=== PATIENT | male | born 1985 | race Asian ===

== ENCOUNTER 2023-03-09 04:03 | Emergency (ER) | payer OTHER, SELFPAY ==
--- NOTE | ~2023-03-09 | XR_ITS ---
Left Forearm AP and lateral views of the left forearm were performed. Clinical History: Laceration Findings: No fracture or dislocation is seen. Osseous alignment in anatomic. Joint spaces are prese rved. Soft tissues are unremarkable. Impression: Unremarkable exam. Reviewed, dictated and finalized at location M. Impression: Unremarkable exam.
[2023-03-09 04:08] VITALS: BP 156/100; PULSE 87; RESP 19; TEMP 36.4; O2SAT 100
--- NOTE | 2023-03-09 04:14 | ED.WOUNDLAC ---
HPI - Wound/Laceration General Chief Complaint: Wound/Laceration Stated Complaint: Left arm injury at work Time Seen by Provider: 03/09/23 04:08 History of Present Illness HPI narrative: History obtained with professional translation services ([employer]). This is a 38-year-old male, with no significant past medical history, who presents to the emergency department with a wound to the left forearm. 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 He complains of moderate, sharp pain. He denies head injury or loss of consciousness. Related Data Allergies Allergy/AdvReac Type Severity Reaction Status Date / Time No Known Allergies Allergy Verified 03/09/23 04:05 Review of Systems Review of Systems: CONSTITUTIONAL: Denies fever, chills, or sweats. CARDIOVASCULAR: Denies chest pain, palpitations, or edema. GASTROINTESTINAL: Denies abdominal pain, nausea, vomiting, or diarrhea. GENITOURINARY: Denies dysuria or hematuria. SKIN: Laceration of the left arm denies rash or itching. MUSCULOSKELETAL: Laceration of the left arm denies back pain, joint pain, or myalgia. PMFSH Past Medical History Medical History No significant past medical history Social History Social History (Updated 03/09/23 @ 04:16 by Julio Phipps MD) Smoking status: Never smoker Alcohol intake: never Substance use: never Exam Narrative: GENERAL: Well-developed, well-nourished, and in no acute distress. HEAD: Normocephalic, atraumatic. EYES: PERRLA and EOMI. CHEST: Clear to auscultation. No respiratory distress. No wheezes rales or rhonchi HEART: Regular rate and rhythm. No murmur heard. Normal peripheral pulses. ABDOMEN: Soft, nontender, nondistended, normal active bowel sounds. EXTREMITIES: 1 cm puncture wound is seen on the ventral aspect of the left forearm approximately 10 cm distal to the elbow. There are two 1 mm puncture wounds just lateral to the previously described wound. Otherwise normal range of motion. No edema. SKIN: Warm, dry, no rash. NEURO: No focal deficits. Alert and oriented x3. Strength 5/5, sensation intact PSYCH: Normal mood and affect. Course Course Emergency Course: :15 - X-ray by my interpretation not concerning for fracture or retained foreign object. The patient's wound was anesthetized with 1% lidocaine, explored and irrigated. Please see procedure note for laceration repair. Will discharge with recommendations for wound care and return for suture removal. Discussed return and emergency precautions including signs/symptoms of wound infection and neurovascular compromise. Patient voiced understanding and is comfortable with the plan. All questions answered to his satisfaction. Vital Signs Vital signs: Vital Signs Temperature 97.5 F L 03/09/23 04:08 Pulse Rate 87 03/09/23 04:08 Respiratory Rate 19 03/09/23 04:08 Blood Pressure 156/100 H 03/09/23 04:08 Pulse Oximetry 100 03/09/23 04:08 Oxygen Delivery Room Air 03/09/23 04:08 Temperature 97.5 F L 03/09/23 04:08 Pulse Rate 87 03/09/23 04:08 Respiratory Rate 19 03/09/23 04:08 Blood Pressure 156/100 H 03/09/23 04:08 Pulse Oximetry 100 03/09/23 04:08 Oxygen Delivery Room Air 03/09/23 04:08 Procedures Laceration Laceration 1: Date: 03/09/23 Time: 05:00 Site: upper extremity Side (If applicable): left Size (cm): 1 Description: irregular Depth: simple, single layer Local Anesthetic: lidocaine 1% Amount of anesthesia used (mL): 8 Pre-repair: wound explored, irrigated and irrigated extensively ====== Skin Level ====== Skin layer closed with: nylon and dermabond Size (cm): 4-0 Number of sutures: 3 Technique: simple, interrupted ====== Subcutaneous Layer ====== Subcutaneous layer closed with: vicryl Si
[2023-03-09] MEDS: oxyCODONE/ACETAMINOPHEN (*CRX) 5-325 MG TABLET 1 TABLET PO (04:30)
[2023-03-09] MEDS: TETANUS,DIPHTHERIA,AC PERTUSSIS ADULT (0.5 ML) BOOSTRIX IM (04:31)
== END 2023-03-09 05:32 | disposition home or self-care (01) ==
PROVIDERS: Emergency Provider Preventive Medicine Aerospace Medicine
DX: S51.812A Laceration without foreign body of left forearm, initial encounter (principal); W20.8XXA Other cause of strike by thrown, projected or falling object, initial encounter; Z23 Encounter for immunization
CPT/HCPCS: 12032; 73090; 90471; 90715; 99283; A9270

== ENCOUNTER 2023-03-27 08:15 | Emergency (ER) | payer OTHER, SELFPAY ==
[2023-03-27 08:29] VITALS: BP 147/99; PULSE 80; RESP 16; TEMP 37.2; O2SAT 99
--- NOTE | 2023-03-27 08:29 | ED.UPPEXIN ---
HPI - Extremity Injury (Upper) General Chief Complaint: Extremity Injury, Upper Stated Complaint: Left Arm Pain Time Seen by Provider: 03/27/23 08:53 Source: patient and RN notes reviewed Mode of arrival: ambulatory Limitations: no limitations History of Present Illness HPI narrative: 38-year-old male presents with concern of for left forearm pain that radiates up to the shoulder and down to the wrist. He reports on March 09 he injured himself at work with a crush and puncture wound. He reports he was seen in the emergency room with that time and had stitches. Reports he had a stitches removed a few days ago. He reports the area of the puncture wound was swollen and painful. He denies redness, warmth, drainage. He reports the pain radiates up the to the shoulder and down to the hand and is worsened when he bends his elbow. He reports that had been bruised but the bruising has resolved. He denies fever, aches, chills, sweats. MD complaint: injury to: left and forearm Related Data Allergies Allergy/AdvReac Type Severity Reaction Status Date / Time No Known Allergies Allergy Verified 03/27/23 08:26 Review of Systems Review of Systems: CONSTITUTIONAL: Denies malaise, chills, sweats, or fever. CARDIOVASCULAR: Denies chest pain, palpitations, or edema. RESPIRATORY: Denies cough or dyspnea. SKIN: Denies rash or itching, bruising, redness MUSCULOSKELETAL: Reports left forearm pain and swelling that radiates to the shoulder and wrist NEUROLOGIC: Denies numbness, weakness All systems reviewed & are unremarkable except as noted in HPI and below PMFSH Past Medical History Medical History No significant past medical history Social History Social History (Updated 03/09/23 @ 04:16 by Julio Phipps MD) Smoking status: Never smoker Alcohol intake: never Substance use: never Comments At time of signature, agree with nursing past medical, surgical, social and family history. There is no relevant family history pertinent to the presenting complaint Exam Narrative: GENERAL: Well-appearing, well-nourished, and in no acute distress. HEAD: Normocephalic, atraumatic. EYES: PERRLA, conjunctivae clear NECK: Supple. CHEST: Speaks in full sentences. No respiratory distress. HEART: Regular rate and rhythm. Normal and equal peripheral pulses. 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 4/5 strength with left 2nd and 3rd digit flexion and extension. Normal sensation with sensitivity to light touch and pain. Healing wounds noted below the elbow with surrounding firm edema under the skin at without erythema, warmth. No skin tenting, no devitalized tissue or atrophy, no trophic changes, no obvious deformity, alignment normal, nearby joints and structures intact. Distal pulses palpable and equal bilaterally, skin warm, dry, pink. Capillary refill less than 3 seconds. No signs of compartment syndrome SKIN: Warm, dry, no rash. NEURO: Alert and oriented x3. PSYCH: Normal mood and affect Course Course Emergency Course: Patient is aware of diagnosis, understands and agrees to treatment plan. Anticipatory guidance given. Patient agrees to follow-up as directed and is aware of reasons to seek care at the emergency department. Portions of this record may have been created with voice recognition software Level of Care: Express Care Visit Vital Signs Vital signs: Reviewed. MDM - Extremity Injury (Upper) MDM Narrative Medical decision making narrative: The swelling surrounding the patient's wound is not concerning for infection, there is no redness, warmth, induration of the skin, though wound is closed, well approximated Patients injury and pain is consistent with musculoskeletal etiology. No signs of neurological or vascular compromise on exam. Compartments and tissues are soft without signs of compar
== END 2023-03-27 08:53 | disposition home or self-care (01) ==
PROVIDERS: Emergency Provider Nurse Practitioner
DX: S59.912A Unspecified injury of left forearm, initial encounter (principal); X58.XXXA Exposure to other specified factors, initial encounter
CPT/HCPCS: 99212; G0463